=== PATIENT | male | born 1955 | race Caucasian/White ===

== ENCOUNTER → 2020-05-06 | Outpatient (CLI) | payer OTHER ==
[2020-05-06 15:03] LABS: BASOPHILS % (AUTO) 1 % (0-1); EOSINOPHILS % (AUTO) 4 % (1-7); LYMPHOCYTES % (AUTO) 24 % (22-44); MEAN CORPUSCULAR HEMOGLOBIN 27.3 pg (27.5-34.5); MEAN CORPUSCULAR HGB CONC 32.7 g/dL (33.2-36.2); MEAN PLATELET VOLUME 7.2 fL (7.4-10.4); MONOCYTES % (AUTO) 17 % (2-9); NEUTROPHILS % (AUTO) 53 % (42-75); PLATELET COUNT 411 x10^3/uL (130-400); RED BLOOD COUNT 4.52 x10^6/uL (4.38-5.82); RED CELL DISTRIBUTION WIDTH 15.5 % (9.4-14.8)
[2020-05-06 15:05] LABS: MD NO
[2020-05-06 15:18] LABS: ALANINE AMINOTRANSFERASE 14 U/L (12-78); ALBUMIN 3.5 g/dL (3.4-5.0); ANION GAP 5 mmol/L (5-15); CALCIUM 9.1 mg/dL (8.5-10.1); CHLORIDE 109 mmol/L (98-107); CREATININE 1.19 mg/dL (0.7-1.3)
[2020-05-06 15:20] LABS: ALKALINE PHOSPHATASE 65 U/L (45-117); BILIRUBIN,TOTAL 0.5 mg/dL (0.2-1.0); TOTAL PROTEIN 7.3 g/dL (6.4-8.2)
== END | disposition home or self-care (01) ==
LOC: LAB 14:52
PROVIDERS: ATTEND Family Medicine
DX: R10.84 Generalized abdominal pain (principal)
CPT/HCPCS: 36415; 80053; 83690; 85025

== ENCOUNTER → 2020-05-06 | Outpatient (CLI) | payer OTHER | END | disposition home or self-care (01) | LOC: RAD 14:30 | PROVIDERS: ATTEND Family Medicine | DX: N28.1 Cyst of kidney, acquired (principal); K76.89 Other specified diseases of liver | CPT/HCPCS: 74176 ==

== ENCOUNTER 2020-05-10 11:26 | Emergency (ER) | payer OTHER ==
[~2020-05-10] VITALS: Ht 193 cm; Wt 101.8 kg
[2020-05-10] MEDS ORDERED: HYDROcodone/APAP 5/325 TABLET ONE (12:22)
[2020-05-10] MEDS ORDERED: ONDANSETRON ODT 4 MG ONE (12:23)
[2020-05-10 12:25] LABS: MEAN CORPUSCULAR HGB CONC 32.4 g/dL (33.2-36.2); MEAN PLATELET VOLUME 7.9 fL (7.4-10.4); PLATELET COUNT 383 x10^3/uL (130-400); RED BLOOD COUNT 4.43 x10^6/uL (4.38-5.82); RED CELL DISTRIBUTION WIDTH 15.3 % (9.4-14.8)
[2020-05-10] MEDS ORDERED: MESA10005 MC (12:36)
--- NOTE | 2020-05-10 12:36 | NUR ---
us at bedside plan iv/meds. as
[2020-05-10 12:37] LABS: ALBUMIN 3.3 g/dL (3.4-5.0); ANION GAP 6 mmol/L (5-15); CALCIUM 9.1 mg/dL (8.5-10.1); CHLORIDE 109 mmol/L (98-107)
[2020-05-10 12:40] LABS: ALANINE AMINOTRANSFERASE 17 U/L (12-78); ALKALINE PHOSPHATASE 64 U/L (45-117); BILIRUBIN,TOTAL 0.5 mg/dL (0.2-1.0); CREATININE 1.17 mg/dL (0.7-1.3); TOTAL PROTEIN 6.9 g/dL (6.4-8.2)
[2020-05-10] MEDS ORDERED: ONDANSETRON 2MG/ML, 2ML ONE (12:49)
[2020-05-10] MEDS ORDERED: MORPHINE SULFATE 4 MG/ML, 1ML ONE (12:49)
--- NOTE | 2020-05-10 12:55 | NUR ---
Report received from RICARDO Nettles and care assumed. Yoon going into room to start IV and give IV pain meds at this time. US already present at bedside per report.
[2020-05-10] MEDS ORDERED: SODIUM CHLORIDE FLUSH 10ML SYR IVF ONE (13:00)
[2020-05-10] MEDS ORDERED: HYDROcodone/APAP 5/325 TABLET PO ONE (13:00)
[2020-05-10] MEDS ORDERED: ONDANSETRON ODT 8 MG PO ONE (13:00)
[2020-05-10] MEDS ORDERED: MORPHINE SULFATE 4 MG/ML, 1ML IVPush PRN (13:00)
[2020-05-10] MEDS ORDERED: ONDANSETRON 2MG/ML, 2ML IVPush ONE (13:00)
[2020-05-10 13:04] LABS: MD YES
[2020-05-10 13:06] LABS: BASOS#(MANUAL) 0.09 x10^3/uL (0-0.1); BASOS% (MANUAL) 1 % (0-1); LYMPH#(MANUAL) 1.62 x10^3/uL (1-3.4); LYMPHS% (MANUAL) 18 % (22-44); MONOS#(MANUAL) 1.08 x10^3/uL (0.3-2.7); MONOS% (MANUAL) 12 % (2-9); SEG#(MANUAL) 6.21 x10^3/uL (1.8-6.8); SEGS% (MANUAL) 69 % (42-75)
[2020-05-10 13:07] LABS: <PLATELET ESTIMATE> ADEQUATE; <PLT MORPHOLOGY> NORMAL PLT MORPH; <RBC MORPHOLOGY> NORMAL
--- NOTE | 2020-05-10 13:54 | NUR ---
Pt reassessed to be 2/10 epigastric pain with resolution of nausea after med surg rn by RICARDO Nettles. arrived at bedside to assess pt. States he is in contact with pt's GI doctor at this time and working on a plan of care now.
--- NOTE | 2020-05-10 14:31 | NUR ---
Pt assisted to bathroom with hat for possible stool sample as ordered at this time. Pt aware of d/c after stool sample sent.
[2020-05-10 14:56] VITALS: BP 144/83
== END 2020-05-10 14:59 | disposition home or self-care (01) ==
LOC: ED 13:37
DX: K51.80 Other ulcerative colitis without complications (principal); R19.7 Diarrhea, unspecified; R10.11 Right upper quadrant pain; R10.32 Left lower quadrant pain; Z87.891 Personal history of nicotine dependence; Z88.5 Allergy status to narcotic agent
CPT/HCPCS: 36415; 76700; 80053; 83690; 85025; 96374; 96375; 99284; J2270; J2405

== ENCOUNTER 2020-05-30 10:13 | Inpatient (IN) | payer OTHER ==
[~2020-05-30] VITALS: Ht 195.6 cm; Wt 93.7 kg
[~2020-05-30 10:13] MED LIST: MESA10005 MC
[2020-05-30] MEDS ORDERED: HYDROmorphone 1 MG/ML, 1ML INJ ONE ×2 (10:27→12:47)
[2020-05-30] MEDS ORDERED: ONDANSETRON 2MG/ML, 2ML ONE (10:27)
[2020-05-30] MEDS ORDERED: SODIUM CHLORIDE FLUSH 10ML SYR IVF ONE (10:30)
[2020-05-30] MEDS ORDERED: ONDANSETRON 2MG/ML, 2ML IVPush ONE (10:30)
[2020-05-30] MEDS ORDERED: SODIUM CHLORIDE 0.9% 1,000ML IVBOLUS ONE (10:30)
[2020-05-30] MEDS: HYDROmorphone 2 MG/ML, 1ML IVPush PRN ×2 (10:30→12:51)
--- NOTE | 2020-05-30 10:33 | NUR ---
TASK RN NOTE: PT PRESENTS TO ED WITH C/O SUPRAPUBIC AND CRAMPING ABDOMINAL PAIN, WAXING AND WANING PRESENT SINCE THE END OF APRIL 2021. PT HAD AN ENDOSCOPY THIS AM, SENT FROM ENDOSCOPY FROM GI MD FOR PAIN CONTROL. ENDOSCOPY FINDINGS WERE PEPTIC ULCER DISEASE AND EXTENSIVE ULCERATIVE COLITIS. PT FULLY UNDRESSED, PLACED ON ALL MONITORS. GIRLFRIEND AT BEDSIDE. REPORT GIVEN TO RICARDO ESPARZA.
--- NOTE | 2020-05-30 10:39 | NUR ---
DR CRYSTAL AT BEDSIDE, PT ASSESSMENT, POC DISCUSSED AND QUESTIONS ANSWERED. PT MED NOTED AND IVF INFUSING W/O DIFFICULTY NOTED. CALL LIGHT W/I REACH, GIRL FRIEND AT BEDSIDE. VSS.
[2020-05-30 10:41] LABS: MEAN CORPUSCULAR HEMOGLOBIN 26.5 pg (27.5-34.5); MEAN CORPUSCULAR HGB CONC 32.7 g/dL (33.2-36.2); MEAN PLATELET VOLUME 7.2 fL (7.4-10.4); PLATELET COUNT 581 x10^3/uL (130-400); RED BLOOD COUNT 4.07 x10^6/uL (4.38-5.82); RED CELL DISTRIBUTION WIDTH 14.7 % (9.4-14.8)
--- NOTE | 2020-05-30 10:41 | NUR ---
PILLOW AND WARM BLANKETS PROVIDED.
[2020-05-30 10:43] LABS: ALANINE AMINOTRANSFERASE 107 U/L (12-78); ALBUMIN 2.2 g/dL (3.4-5.0); ANION GAP 9 mmol/L (5-15); CALCIUM 8.5 mg/dL (8.5-10.1); CHLORIDE 105 mmol/L (98-107)
[2020-05-30 10:45] LABS: ALKALINE PHOSPHATASE 137 U/L (45-117); BILIRUBIN,TOTAL 0.5 mg/dL (0.2-1.0); TOTAL PROTEIN 6.9 g/dL (6.4-8.2)
--- NOTE | 2020-05-30 10:53 | NUR ---
PT PAIN 2/10, SPO2 FALLING TO 86%, O2 2L NC PLACED WITH EFFECT. PT TO CT WITH TECH TRANSPORT
[2020-05-30] MEDS ORDERED: methylPREDNISolone SOD SUCC 40 MG/ML IV ONE (11:00)
[2020-05-30 11:03] LABS: MD YES
[2020-05-30 11:05] LABS: BAND#(MANUAL) 1.63 x10^3/uL; BANDS%(MANUAL) 12 % (0-7); LYMPH#(MANUAL) 1.36 x10^3/uL (1-3.4); LYMPHS% (MANUAL) 10 % (22-44); MONOS#(MANUAL) 1.77 x10^3/uL (0.3-2.7); MONOS% (MANUAL) 13 % (2-9); SEG#(MANUAL) 8.84 x10^3/uL (1.8-6.8); SEGS% (MANUAL) 65 % (42-75)
[2020-05-30 11:06] LABS: <PLATELET ESTIMATE> INCREASED; <PLT MORPHOLOGY> NORMAL PLT MORPH; HYPOCHROMIA 1+; POLYCHROMASIA 1+
[2020-05-30] MEDS ORDERED: OMNIPAQUE 350 MG/ML, 100ML BOTTLE ONE (11:22)
--- NOTE | 2020-05-30 11:34 | NUR ---
PT RTD FROM CT. VSS, PAIN 08/10. ADDITIONAL PAIN MEDICATION OFFERED PT REFUSES AT THIS TIME. CALL LIGHT W/I REACH,
--- NOTE | 2020-05-30 12:00 | NUR ---
assumed care of pt. report for Janis SILVA pt here for abd pain after endoscopy today. per report, pt has been medicated for pain and is now resting in position of comfort hospitalist at bedside for eval
--- NOTE | 2020-05-30 12:45 | NUR ---
hospitalist still at pt bedside
[2020-05-30] MEDS ORDERED: methylPREDNISolone SOD SUCC 125 MG/2 ML ONE (12:48)
--- NOTE | 2020-05-30 12:55 | NUR ---
pt has been medicated for pain per request. updated on POC
[2020-05-30] MEDS ORDERED: LABETALOL 5MG/ML, 20ML IVPush PRN (13:00)
[2020-05-30] MEDS ORDERED: HYDROmorphone 2 MG/ML, 1ML IVPush PRN (13:00)
[2020-05-30] MEDS ORDERED: ONDANSETRON ODT 4 MG PO PRN (13:00)
[2020-05-30] MEDS ORDERED: ONDANSETRON 2MG/ML, 2ML IVPush PRN (13:00)
[2020-05-30] MEDS ORDERED: PANTOPRAZOLE 40 MG IV IVPush ONE (13:30)
--- NOTE | 2020-05-30 14:00 | NUR ---
pt up to bedside commode per request
[2020-05-30 14:30] LABS: MICROSCOPIC NOT IND
--- NOTE | 2020-05-30 15:00 | NUR ---
pt resting in position of comfort with eyes closed. admit orders have been recieved, awating bed assignment
[2020-05-30 15:17] LABS: HCT (SEDRATE) 28.8 % (39.2-51.8)
--- NOTE | 2020-05-30 15:55 | NUR ---
no changes. pt sleeping. lights dimmed for comfort. no family at bedside
--- NOTE | 2020-05-30 16:30 | NUR ---
pt up to bedside commode for stool sample
--- NOTE | 2020-05-30 17:00 | NUR ---
meal tray has been delivered. pt has no new c/o at this time
--- NOTE | 2020-05-30 17:25 | NUR ---
pt has consumed about 90% of his clear liquid diet tray. pt denies pain at this time. positioning for comfort. pt watching TV. no family at bedside
--- NOTE | 2020-05-30 17:39 | NUR ---
report to Lauren SILVA
[2020-05-30] MEDS: LACTATED RINGERS 1,000 ML IV SCH (17:45)
[2020-05-30] MEDS ORDERED: PANTOPRAZOLE 40 MG IV ONE (17:46)
--- NOTE | 2020-05-30 17:48 | NUR ---
ASSUMED CARE OF PATIENT. REPORT GIVEN FROM RICARDO ARMIJO
--- NOTE | 2020-05-30 18:00 | NUR ---
PT WATCHING TV. NO ACUTE DISTRESS NOTED. VS STABLE. CALL LIGHT IN PLACE. WILL CONTINUE TO MONITOR.
[2020-05-30] MEDS ORDERED: methylPREDNISolone SOD SUCC 40 MG/ML IV SCH ×2 (18:30→21:00)
[2020-05-30 18:31] LABS: CLOSTRIDIUM DIFFICILE ANTIGEN NEGATIVE; CLOSTRIDIUM DIFFICILE TOXIN NEGATIVE (Negative)
--- NOTE | 2020-05-30 18:59 | NUR ---
PT RESTING IN ROOM. VS STABLE. NO ACUTE DISTRESS NOTED. CALL LIGHT IN PLACE. WILL CONTINUE TO MONITOR
--- NOTE | 2020-05-30 19:34 | NUR ---
PT ON CELL PHONE IN ROOM. VS STABLE. NO ACUTE DISTRESS NOTED. CALL LIGHT IN PLACE. WILL CONTINUE TO MONITOR.
[2020-05-30 20:27] VITALS: BP 118/73
[2020-05-30] MEDS ORDERED: FAMOTIDINE 20 MG/2 ML IVPush SCH (21:00)
[2020-05-30] MEDS ORDERED: FLU VACC QS2020-21(6MOS UP)/PF 60MCG/0.5 ML SYR IM ONE (22:00)
[2020-05-31] MEDS: LACTATED RINGERS 1,000 ML IV SCH ×3 (00:20→19:30)
[2020-05-31 00:50] VITALS: BP 117/67
[2020-05-31] MEDS ORDERED: HEPARIN 5,000 UNITS/ML, 1ML SQ SCH (07:00)
[2020-05-31 07:10] VITALS: BP 130/72
[2020-05-31 07:12] LABS: HCT (SEDRATE) 26.9 % (39.2-51.8)
[2020-05-31 07:14] LABS: BASOPHILS % (AUTO) 0 % (0-1); EOSINOPHILS % (AUTO) 0 % (1-7); LYMPHOCYTES % (AUTO) 11 % (22-44); MEAN CORPUSCULAR HEMOGLOBIN 26.7 pg (27.5-34.5); MEAN CORPUSCULAR HGB CONC 32.9 g/dL (33.2-36.2); MEAN PLATELET VOLUME 7.1 fL (7.4-10.4); MONOCYTES % (AUTO) 14 % (2-9); NEUTROPHILS % (AUTO) 75 % (42-75); PLATELET COUNT 512 x10^3/uL (130-400); RED BLOOD COUNT 3.35 x10^6/uL (4.38-5.82); RED CELL DISTRIBUTION WIDTH 14.7 % (9.4-14.8)
[2020-05-31 07:16] LABS: MD NO
[2020-05-31 07:22] LABS: ALANINE AMINOTRANSFERASE 64 U/L (12-78); ALBUMIN 1.8 g/dL (3.4-5.0); ANION GAP 5 mmol/L (5-15); CALCIUM 8.3 mg/dL (8.5-10.1); CHLORIDE 110 mmol/L (98-107)
[2020-05-31 07:24] LABS: ALKALINE PHOSPHATASE 102 U/L (45-117); BILIRUBIN,TOTAL 0.3 mg/dL (0.2-1.0); CREATININE 1.12 mg/dL (0.7-1.3); TOTAL PROTEIN 5.5 g/dL (6.4-8.2)
[2020-05-31] MEDS: methylPREDNISolone SOD SUCC 40 MG/ML IV SCH ×2 (08:12→19:51)
[2020-05-31] MEDS: PANTOPRAZOLE 40 MG IV IVPush SCH (10:30)
[2020-05-31] MEDS ORDERED: ACETAMINOPHEN 325 MG TABLET PO PRN (16:00)
[2020-05-31 16:54] VITALS: BP 137/75
[2020-05-31 18:39] VITALS: BP 137/75
[2020-06-01 00:55] VITALS: BP 148/76
[2020-06-01] MEDS ORDERED: DIPHENHYDRAMINE 25 MG CAPSULE NG PRN (01:30)
[2020-06-01] MEDS ORDERED: MELATONIN 5 MG TABLET NG PRN (01:30)
[2020-06-01] MEDS: MELATONIN 5 MG TABLET PO PRN ×2 (01:55→22:30)
[2020-06-01] MEDS: LACTATED RINGERS 1,000 ML IV SCH ×4 (01:55→21:00)
[2020-06-01 05:10] LABS: BASOPHILS % (AUTO) 0 % (0-1); EOSINOPHILS % (AUTO) 0 % (1-7); LYMPHOCYTES % (AUTO) 12 % (22-44); MEAN CORPUSCULAR HEMOGLOBIN 26.9 pg (27.5-34.5); MEAN CORPUSCULAR HGB CONC 33.2 g/dL (33.2-36.2); MEAN PLATELET VOLUME 7.4 fL (7.4-10.4); MONOCYTES % (AUTO) 13 % (2-9); NEUTROPHILS % (AUTO) 74 % (42-75); PLATELET COUNT 457 x10^3/uL (130-400); RED BLOOD COUNT 3.34 x10^6/uL (4.38-5.82); RED CELL DISTRIBUTION WIDTH 14.8 % (9.4-14.8)
[2020-06-01 05:12] LABS: MD NO
[2020-06-01 05:25] LABS: ALBUMIN 1.9 g/dL (3.4-5.0); ANION GAP 6 mmol/L (5-15); CALCIUM 8.4 mg/dL (8.5-10.1); CHLORIDE 109 mmol/L (98-107)
[2020-06-01 05:29] LABS: ALANINE AMINOTRANSFERASE 140 U/L (12-78); ALKALINE PHOSPHATASE 99 U/L (45-117); BILIRUBIN,TOTAL 0.2 mg/dL (0.2-1.0); CREATININE 1.07 mg/dL (0.7-1.3); TOTAL PROTEIN 5.5 g/dL (6.4-8.2)
[2020-06-01 08:19] VITALS: BP 118/65
[2020-06-01] MEDS: PANTOPRAZOLE 40 MG IV IVPush SCH (09:36)
[2020-06-01] MEDS: methylPREDNISolone SOD SUCC 40 MG/ML IV SCH ×2 (09:36→21:21)
[2020-06-01 14:00] VITALS: BP 119/56
[2020-06-01 19:20] VITALS: BP 120/63
[2020-06-01] MEDS: MESALAMINE ENEMA 4 GM/60 ML ENEMA PR SCH (21:22)
[2020-06-02 00:54] VITALS: BP 126/65
[2020-06-02] MEDS: OXYcodone IR 5MG TABLET PO PRN ×2 (01:11→21:11)
[2020-06-02] MEDS: LACTATED RINGERS 1,000 ML IV SCH ×4 (01:23→22:29)
[2020-06-02 04:46] LABS: BASOPHILS % (AUTO) 0 % (0-1); EOSINOPHILS % (AUTO) 0 % (1-7); LYMPHOCYTES % (AUTO) 10 % (22-44); MEAN CORPUSCULAR HEMOGLOBIN 26.9 pg (27.5-34.5); MEAN CORPUSCULAR HGB CONC 33.3 g/dL (33.2-36.2); MEAN PLATELET VOLUME 7.2 fL (7.4-10.4); MONOCYTES % (AUTO) 10 % (2-9); NEUTROPHILS % (AUTO) 80 % (42-75); PLATELET COUNT 453 x10^3/uL (130-400); RED BLOOD COUNT 3.34 x10^6/uL (4.38-5.82); RED CELL DISTRIBUTION WIDTH 14.5 % (9.4-14.8)
[2020-06-02 04:50] LABS: MD NO
[2020-06-02 04:53] LABS: ALBUMIN 1.9 g/dL (3.4-5.0); ANION GAP 5 mmol/L (5-15); CALCIUM 8.6 mg/dL (8.5-10.1); CHLORIDE 110 mmol/L (98-107)
[2020-06-02 05:06] LABS: % IRON SATURATION 10 % (20-55); CREATININE 0.96 mg/dL (0.7-1.3); IRON LEVEL 19 mcg/dL (65-175); TOTAL IRON BINDING CAPACITY 186 mcg/dL (250-450)
[2020-06-02 05:07] LABS: ALANINE AMINOTRANSFERASE 142 U/L (12-78); ALKALINE PHOSPHATASE 88 U/L (45-117); BILIRUBIN,TOTAL 0.2 mg/dL (0.2-1.0); PREALBUMIN 12.4 mg/dL (20.0-40.0); TOTAL PROTEIN 5.4 g/dL (6.4-8.2)
[2020-06-02 07:49] VITALS: BP 133/76
[2020-06-02] MEDS ORDERED: PANTOPRAZOLE 40MG TABLET PO SCH (08:30)
[2020-06-02] MEDS: PANTOPRAZOLE 40MG TABLET PO SCH ×2 (08:32→17:41)
[2020-06-02] MEDS: DICYCLOMINE 10 MG CAPSULE PO SCH ×3 (13:14→21:11)
[2020-06-02 13:23] VITALS: BP 119/62
[2020-06-02 19:29] VITALS: BP 120/68
[2020-06-02] MEDS: MESALAMINE ENEMA 4 GM/60 ML ENEMA PR SCH (22:30)
[2020-06-03 00:57] VITALS: BP 135/82
[2020-06-03] MEDS: OXYcodone IR 5MG TABLET PO PRN ×3 (01:11→23:50)
[2020-06-03 05:35] LABS: MEAN CORPUSCULAR HEMOGLOBIN 26.6 pg (27.5-34.5); MEAN CORPUSCULAR HGB CONC 32.6 g/dL (33.2-36.2); MEAN PLATELET VOLUME 7.1 fL (7.4-10.4); PLATELET COUNT 490 x10^3/uL (130-400); RED BLOOD COUNT 3.36 x10^6/uL (4.38-5.82); RED CELL DISTRIBUTION WIDTH 14.5 % (9.4-14.8)
[2020-06-03 05:37] LABS: CHLORIDE 106 mmol/L (98-107)
[2020-06-03 05:43] LABS: ALANINE AMINOTRANSFERASE 130 U/L (12-78); ALKALINE PHOSPHATASE 85 U/L (45-117); ANION GAP 6 mmol/L (5-15); BILIRUBIN,TOTAL 0.3 mg/dL (0.2-1.0); CALCIUM 8.2 mg/dL (8.5-10.1); CREATININE 0.97 mg/dL (0.7-1.3); TOTAL PROTEIN 5.4 g/dL (6.4-8.2)
[2020-06-03] MEDS: PANTOPRAZOLE 40MG TABLET PO SCH ×2 (06:02→16:39)
[2020-06-03] MEDS: DICYCLOMINE 10 MG CAPSULE PO SCH ×4 (06:02→21:05)
[2020-06-03] MEDS: LACTATED RINGERS 1,000 ML IV SCH (06:03)
[2020-06-03 06:13] LABS: MD YES
[2020-06-03 06:14] LABS: BAND#(MANUAL) 0.39 x10^3/uL; BANDS%(MANUAL) 4 % (0-7); SEG#(MANUAL) 7.66 x10^3/uL (1.8-6.8); SEGS% (MANUAL) 79 % (42-75)
[2020-06-03 06:15] LABS: <PLATELET ESTIMATE> INCREASED; <PLT MORPHOLOGY> NORMAL PLT MORPH; <RBC MORPHOLOGY> NORMAL; LYMPH#(MANUAL) 1.07 x10^3/uL (1-3.4); LYMPHS% (MANUAL) 11 % (22-44); MONOS#(MANUAL) 0.58 x10^3/uL (0.3-2.7); MONOS% (MANUAL) 6 % (2-9)
[2020-06-03 08:48] VITALS: BP 112/68
[2020-06-03] MEDS ORDERED: IRON SUCROSE COMPLEX 100MG/5ML IV SCH (09:00)
[2020-06-03] MEDS ORDERED: IRON DEXTRAN COMPLEX 25 MG in SODIUM CHLORIDE 0.9% 50 ML IV ONE (10:33)
[2020-06-03] MEDS ORDERED: EPINEPHRINE 1 MG/ML, 1ML ONE (11:05)
[2020-06-03] MEDS ORDERED: IRON DEXTRAN COMPLEX 1,800 MG in SODIUM CHLORIDE 0.9% 250 ML IV ONE (11:30)
[2020-06-03 13:17] VITALS: BP 110/57
[2020-06-03 19:30] VITALS: BP 126/69
[2020-06-03] MEDS: MESALAMINE ENEMA 4 GM/60 ML ENEMA PR SCH (21:35)
[2020-06-04 00:56] VITALS: BP 123/66
[2020-06-04] MEDS: PANTOPRAZOLE 40MG TABLET PO SCH ×2 (05:39→16:24)
[2020-06-04] MEDS: DICYCLOMINE 10 MG CAPSULE PO SCH ×4 (05:39→20:54)
[2020-06-04 07:25] VITALS: BP 134/68
[2020-06-04 13:12] VITALS: BP 122/66
[2020-06-04 19:30] VITALS: BP 121/65
[2020-06-04] MEDS: OXYcodone IR 5MG TABLET PO PRN ×2 (20:55→23:46)
[2020-06-04] MEDS: MESALAMINE ENEMA 4 GM/60 ML ENEMA PR SCH (21:31)
[2020-06-05 00:42] VITALS: BP 108/65
[2020-06-05 05:10] LABS: BASOPHILS % (AUTO) 0 % (0-1); EOSINOPHILS % (AUTO) 0 % (1-7); LYMPHOCYTES % (AUTO) 14 % (22-44); MEAN CORPUSCULAR HEMOGLOBIN 26.1 pg (27.5-34.5); MEAN CORPUSCULAR HGB CONC 32.2 g/dL (33.2-36.2); MEAN PLATELET VOLUME 6.8 fL (7.4-10.4); MONOCYTES % (AUTO) 10 % (2-9); NEUTROPHILS % (AUTO) 76 % (42-75); PLATELET COUNT 558 x10^3/uL (130-400); RED BLOOD COUNT 3.74 x10^6/uL (4.38-5.82); RED CELL DISTRIBUTION WIDTH 15.2 % (9.4-14.8)
[2020-06-05 05:12] LABS: MD NO
[2020-06-05 05:22] LABS: CHLORIDE 106 mmol/L (98-107)
[2020-06-05 05:32] LABS: ALANINE AMINOTRANSFERASE 93 U/L (12-78); ALBUMIN 2.1 g/dL (3.4-5.0); ALKALINE PHOSPHATASE 84 U/L (45-117); ANION GAP 6 mmol/L (5-15); BILIRUBIN,TOTAL 0.5 mg/dL (0.2-1.0); CALCIUM 8.5 mg/dL (8.5-10.1); CREATININE 0.97 mg/dL (0.7-1.3); TOTAL PROTEIN 5.5 g/dL (6.4-8.2)
[2020-06-05] MEDS: PANTOPRAZOLE 40MG TABLET PO SCH (05:35)
[2020-06-05] MEDS: DICYCLOMINE 10 MG CAPSULE PO SCH ×2 (05:35→11:11)
[2020-06-05 07:22] VITALS: BP 123/65
[2020-06-05] MEDS ORDERED: PRED20TA PO (12:54)
[2020-06-05] MEDS ORDERED: DICY10CA3 PO (12:54)
[2020-06-05] MEDS ORDERED: SUCR1TAB33 PO (12:54)
[2020-06-05] MEDS ORDERED: PANT40TA6 PO (12:54)
[2020-06-05 13:12] VITALS: BP 110/62
== END 2020-06-05 15:45 | disposition home or self-care (01) | DRG 386 ==
LOC: ED 10:46 → SUATTDRO 11:57 → EDIP 12:21 → 3N 20:15 → DCLOUNGE 06-05 15:39
PROVIDERS: ADMIT Internal Medicine; ATTEND Internal Medicine
DX: K51.919 Ulcerative colitis, unspecified with unspecified complications (principal); N17.9 Acute kidney failure, unspecified; E46 Unspecified protein-calorie malnutrition; K26.9 Duodenal ulcer, unspecified as acute or chronic, without hemorrhage or perforation; E86.0 Dehydration; R74.01 Elevation of levels of liver transaminase levels; R79.89 Other specified abnormal findings of blood chemistry; M19.90 Unspecified osteoarthritis, unspecified site; K21.9 Gastro-esophageal reflux disease without esophagitis; K25.9 Gastric ulcer, unspecified as acute or chronic, without hemorrhage or perforation; D64.9 Anemia, unspecified; Z87.891 Personal history of nicotine dependence; Z79.899 Other long term (current) drug therapy; Z88.5 Allergy status to narcotic agent; Z68.24 Body mass index [BMI] 24.0-24.9, adult; Z87.11 Personal history of peptic ulcer disease
CPT/HCPCS: 36415; 74177; 80053; 81003; 83540; 83550; 83690; 83735; 83993; 84134; 85014; 85018; 85025; 85651; 86480; 86704; 86706; 87046; 87324; 87340; 87427; 90686; 93005; 96361; 96374; 96375; 99285; G0378; J1170; J1750; J2405; Q9967; C9113; J2920; J7030; J7050; J7120; J7512

== ENCOUNTER → 2020-06-11 | Outpatient (CLI) | payer OTHER ==
[~2020-06-11] MED LIST changes: +DICY10CA3 PO; +PANT40TA6 PO; +PRED20TA PO; +SUCR1TAB33 PO
== END | disposition home or self-care (01) ==
LOC: LAB 12:44
PROVIDERS: ATTEND Family Medicine
DX: Z00.00 Encounter for general adult medical examination without abnormal findings (principal); D53.9 Nutritional anemia, unspecified
CPT/HCPCS: 36415; 82607; 82728; 83540; 83550; 85014; 85018

== ENCOUNTER → 2020-06-17 | Outpatient (CLI) | payer OTHER ==
[2020-06-17 12:23] LABS: BASOPHILS % (AUTO) 0 % (0-1); EOSINOPHILS % (AUTO) 0 % (1-7); LYMPHOCYTES % (AUTO) 19 % (22-44); MEAN CORPUSCULAR HEMOGLOBIN 28.2 pg (27.5-34.5); MEAN CORPUSCULAR HGB CONC 32.4 g/dL (33.2-36.2); MEAN PLATELET VOLUME 7.1 fL (7.4-10.4); MONOCYTES % (AUTO) 12 % (2-9); NEUTROPHILS % (AUTO) 69 % (42-75); PLATELET COUNT 344 x10^3/uL (130-400); RED BLOOD COUNT 4.32 x10^6/uL (4.38-5.82)
[2020-06-17 12:25] LABS: MD NO
[2020-06-17 12:31] LABS: CHLORIDE 109 mmol/L (98-107)
[2020-06-17 12:43] LABS: % IRON SATURATION 27 % (20-55); ALANINE AMINOTRANSFERASE 24 U/L (12-78); ALBUMIN 2.9 g/dL (3.4-5.0); ALKALINE PHOSPHATASE 63 U/L (45-117); ANION GAP 7 mmol/L (5-15); BILIRUBIN,TOTAL 0.5 mg/dL (0.2-1.0); C-REACTIVE PROTEIN, QUANT 0.12 mg/dL (0.02-0.49); CALCIUM 8.5 mg/dL (8.5-10.1); CREATININE 1.16 mg/dL (0.7-1.3); IRON LEVEL 63 mcg/dL (65-175); TOTAL IRON BINDING CAPACITY 235 mcg/dL (250-450); TOTAL PROTEIN 6.2 g/dL (6.4-8.2)
== END | disposition home or self-care (01) ==
LOC: LAB 12:01
PROVIDERS: ATTEND Internal Medicine Gastroenterology
DX: K51.90 Ulcerative colitis, unspecified, without complications (principal)
CPT/HCPCS: 36415; 80053; 82728; 83540; 83550; 85025; 86140

== ENCOUNTER → 2020-09-23 | Outpatient (CLI) | payer OTHER ==
[2020-09-23 11:06] LABS: BASOPHILS % (AUTO) 1 % (0-1); EOSINOPHILS % (AUTO) 5 % (1-7); LYMPHOCYTES % (AUTO) 29 % (22-44); MEAN CORPUSCULAR HGB CONC 33.9 g/dL (33.2-36.2); MEAN PLATELET VOLUME 8.5 fL (7.4-10.4); MONOCYTES % (AUTO) 13 % (2-9); NEUTROPHILS % (AUTO) 53 % (42-75); PLATELET COUNT 233 x10^3/uL (130-400); RED BLOOD COUNT 5.03 x10^6/uL (4.38-5.82); RED CELL DISTRIBUTION WIDTH 13.6 % (9.4-14.8)
[2020-09-23 11:13] LABS: ALANINE AMINOTRANSFERASE 35 U/L (12-78); ANION GAP 4 mmol/L (5-15); C-REACTIVE PROTEIN, QUANT 0.11 mg/dL (0.02-0.49); CALCIUM 8.9 mg/dL (8.5-10.1); CHLORIDE 111 mmol/L (98-107); CREATININE 1.14 mg/dL (0.7-1.3); IRON LEVEL 73 mcg/dL (65-175)
[2020-09-23 11:16] LABS: % IRON SATURATION 24 % (20-55); ALKALINE PHOSPHATASE 53 U/L (45-117); BILIRUBIN,TOTAL 0.5 mg/dL (0.2-1.0); TOTAL IRON BINDING CAPACITY 306 mcg/dL (250-450)
[2020-09-23 11:22] LABS: MD NO
== END | disposition home or self-care (01) ==
LOC: LAB 10:45
PROVIDERS: ATTEND Internal Medicine Gastroenterology
DX: D64.9 Anemia, unspecified (principal); K50.90 Crohn's disease, unspecified, without complications
CPT/HCPCS: 36415; 80053; 82728; 83540; 83550; 84466; 85025; 86140